=== PATIENT | female | born 1955 | race Caucasian/White ===

== ENCOUNTER → 2018-06-17 08:17 | Outpatient (POV) | payer BC, SELFPAY | PROVIDERS: Visit Provider Dermatology | DX: Z00.00 Encounter for general adult medical examination without abnormal findings (principal) ==

== ENCOUNTER 2020-08-30 10:29 | Emergency (ER) | payer MEDICARE, BC, SELFPAY ==
[2020-08-30 11:09] VITALS: BP 171/90; PULSE 62; RESP 20; TEMP 36.6; O2SAT 98; BMI 29.9
--- NOTE | 2020-08-30 11:20 | HMH.EDUTC ---
[facility] [place] Disposition Clinical Impression: Arm skin lesion, right, History of basal cell cancer Disposition: Home, Self-Care Condition on Discharge: Good Instructions: Skin Cancer -- Overview Additional Instructions: Follow up with Dr. Wesley at [facility]. You have an appointment there on September 06 at 08:45 am. Wear sun screen and avoid getting too much sunlight. Follow up with your primary care doctor. GO TO THE ER FOR ANY WORSENING SYMPTOMS OR CONCERNS Referrals: Provider,MD Marylin [Primary Care Provider] - Christina Wesley MD [Referring] - 09/06/20 8:45 am Time of Disposition: 11:29 Medical Decision Making - Medical Records Medical records reviewed: Yes: I reviewed the patient's medical records. - [place] Inquiry Pt receiving controlled substance: No Vital Signs: 08/30/20 11:09 08/30/20 11:41 Temperature 97.8 F 98 F Temperature Source Oral Pulse Rate 69 Pulse Rate [Right] 62 Respiratory Rate 20 21 Blood Pressure 162/94 H Blood Pressure [Right Arm] 171/90 H Blood Pressure Mean [Right Arm] 117 02 Sat by Pulse Oximetry 98 [facility] [place] HPI - General Stated complaint: Rt arm bump Time Seen by Provider: 08/30/20 11:20 Mode of Arrival: Ambulatory Source of Information: Patient Limitations: No Limitations Description of Symptoms (Recalled from Triage Doc. by RN): pt believes she was bitten by a spider a few days ago on the outer R fore arm. pt squeezed it a few days ago and got a hard core and blood out of it. today it is warm, raised, and has a dried skin appearance. HEENT Symptoms (Recalled from RN notes): No Resp Symptoms (Recalled from RN notes): No Skin Symptoms (Recalled from RN notes): Yes (red, raised, warm spot on outer R forearm) MS Symptoms (Recalled from RN notes): No Functional Status (Recalled from RN notes): na - History of Present Illness Provider Complaint: She states that she has a raised area on her right forearm that has been present for the past couple of months. The site has slowly got slightly larger. At first the site was red around, but she put neosporin ointment on it and the redness went away. She has a history basal cell skin cancer on her nose that was removed by dermatology several years ago. She has saw Dr. Wesley (dermatolgy) at the [facility] here at the hospital in the past. - Related Data Allergies Allergy/AdvReac Type Severity Reaction Status Date / Time No Known Allergies Allergy Verified 08/30/20 11:13 - Worker's Comp Is this a Worker's Comp case?: No H History - Hepatitis A Screen Drug use history?: No High risk sexual behaviors?: No History of sexually transmitted infection?: No Currently employed?: No Childcare worker?: No Do you have indoor plumbing?: Yes Do you have electricity?: Yes Attestation statement:: This patient has been screened for Hepatitis A risk factors. I have reviewed the patient's past medical history: Yes ROS Obtained: Yes All systems reviewed & no additional complaints - Constitutional Constitutional: Denies chills, Denies fever(s) - Musculoskeletal Musculoskeletal: Reports as per HPI - Integumentary/Breasts Skin/Breast: Reports as per HPI - Neurologic Neurologic: Denies tingling/numbness/burning sensations Physical Exam - General General appearance: alert, in no apparent distress - Head Head exam: atraumatic, normocephalic, normal inspection - Eye Eye exam: Present: normal appearance, PERRL, EOMI - ENT ENT exam: Present: normal exam, normal oropharynx, mucous membranes moist, TM's normal bilaterally, normal external ear exam - Neck Neck exam: Present: normal inspection, full ROM, trachea midline. Absent: meningismus, lymphadenopathy - Chest Chest inspection: Present: normal inspection, symmetric chest wall rise. Absent: tenderness - Respiratory Respiratory exam: Present: normal lung sounds bilaterally. Absent: respiratory distress - Cardiovascular
[2020-08-30 11:41] VITALS: BP 162/94; PULSE 69; RESP 21; TEMP 36.6
== END 2020-08-30 11:41 | disposition home or self-care (01) ==
PROVIDERS: Emergency Provider Nurse Practitioner Family
DX: L98.9 Disorder of the skin and subcutaneous tissue, unspecified (principal); Z85.828 Personal history of other malignant neoplasm of skin
CPT/HCPCS: G0463; 99202

== ENCOUNTER → 2020-09-06 08:52 | Outpatient (POV) | payer MEDICARE, BC, SELFPAY | PROVIDERS: Visit Provider Dermatology | DX: Z00.00 Encounter for general adult medical examination without abnormal findings (principal) ==

== ENCOUNTER → 2020-09-20 15:08 | Outpatient (POV) | payer MEDICARE, BC, SELFPAY | PROVIDERS: Visit Provider Dermatology | DX: Z00.00 Encounter for general adult medical examination without abnormal findings (principal) ==